=== PATIENT | female | born 1965 | race Caucasian/White ===

== ENCOUNTER 2022-07-13 22:39 | Emergency (ER) | payer OTHER, MEDICAID, SELFPAY ==
[2022-07-13 23:17] VITALS: BP 150/86; PULSE 104; RESP 16; TEMP 36.7; O2SAT 94; BMI 57.4
--- NOTE | 2022-07-13 23:40 | ED.ABDPAIN ---
HPI - Abdominal Pain General Chief Complaint: Abdominal Pain Stated Complaint: Cold and ABD pain x week Time Seen by Provider: 07/13/22 22:54 Source: patient Mode of arrival: Family Vehicle History of Present Illness HPI narrative: 56-year-old female nonsmoker with a history of asthma presents with family in the chief complaint of nasal congestion cough productive of yellowish sputum and pleuritic-type chest pain over the course of the week. She is had subjective fever and body aches and states that with all of the coughing she has exacerbated the pain in a known large ventral hernia. She is had no nausea or vomiting, she is having normal bowel movements and is still passing gas without difficulty. She denies dysuria, frequency urgency. She denies any significant shortness of breath, recent travel, history of blood clot, known cancer or pain, swelling or redness of either of her lower extremities. Related Data Previous Rx's Medication Instructions Recorded benzonatate 200 mg capsule 200 mg PO BID PRN cough #20 caps 07/14/22 doxycycline hyclate 100 mg tablet 100 mg PO BID #20 tabs 07/14/22 Allergies Allergy/AdvReac Type Severity Reaction Status Date / Time amoxicillin [From Augmentin] Allergy Unknown Verified 07/13/22 23:57 clavulanic acid Allergy Unknown Verified 07/13/22 23:57 [From Augmentin] codeine Allergy Unknown Verified 07/13/22 23:56 ibuprofen Allergy Unknown Verified 07/13/22 23:57 Review of Systems Review of Systems Narrative: GENERAL: Denies chills, fatigue, malaise, fever, sweats. HEENT: See HPI RESPIRATORY: See HPI CARDIOVASCULAR: Denies chest pain, palpitations, orthopnea, edema, GASTROINTESTINAL: See HPI : Denies dysuria, frequency, incontinence, hematuria, urinary retention. MUSCULOSKELETAL: denies weakness, joint pain, or bony pain SKIN: Denies rash, skin lesions, or other NEUROLOGIC: Denies weakness, headache, numbness, change in speech, confusion, seizures, incoordination. PSYCHIATRIC: No concerning psychosocial issues. 12 point review of systems is negative except for those stated above Exam Narrative Exam Narrative: GENERAL: [56] year old patient appears stated age. Well-developed patient, in mild distress. HEAD: Atraumatic. Normocephalic. EYES: Pupils equal round and reactive. Extraocular motions intact. No scleral icterus. No injection or drainage. ENT: Nose without bleeding, purulent drainage. Throat without erythema, tonsillar hypertrophy or exudate. Airway patent. NECK: Trachea midline. Non tender CARDIOVASCULAR: Regular rate and rhythm without murmurs, gallops, or rubs. RESPIRATORY: Clear to auscultation. Breath sounds equal bilaterally. No wheezes, rales, or rhonchi. GASTROINTESTINAL: Abdomen soft, large ventral hernia, minimally tender, no overlying erythema EXTREMITIES: No edema or joint tenderness. BACK: Nontender without deformity or crepitance. No flank tenderness. NEURO: AOx3. SKIN: No rash or erythema of visible areas Initial Vital Signs Initial Vital Signs: Vital Signs Temperature 98.1 F 07/13/22 23:17 Pulse Rate 104 H 07/13/22 23:17 Respiratory Rate 16 07/13/22 23:17 Blood Pressure 150/86 H 07/13/22 23:17 Pulse Oximetry 94 07/13/22 23:17 Oxygen Delivery Method Room Air 07/13/22 23:17 Course Orders Ordered: ED Orders 07/13/22 23:47 XR acute abdomen series Stat 07/13/22 23:55 Complete Blood Count AUTO DIFF Stat Comprehensive Metabolic Panel Stat Lipase Stat 07/14/22 00:10 Respiratory Panel (Film Array) Stat 07/14/22 01:01 CT abdomen pelvis w con Stat CT angio chest PE protocol Stat Discontinued Medications Hydromorphone HCl (Hydromorphone 0.5 Mg Inj) 0.5 mg IV NOW ONE Stop: 07/14/22 01:02 Last Admin: 07/14/22 01:38 Dose: 0.5 mg Documented By: NICOLE Sodium Chloride (Normal Saline 0.9%) 1,000 mls @ 1,000 mls/hr IV BOLUS ONE Stop: 07/14/22 00:46 Last Infusion: 07/14/22 01:29 Dose: 0 mls/hr Documented By: Admin: 07/14/22 00:08 Dose: 1,000 mls/hr Documented By: NICOLE Ondansetron HCl (Ondansetron 4 Mg/2 Ml Inj) 4 mg IV NOW ONE Stop: 07/14/22 01:02 Last Admin: 07/14/22 01:38 Dose: 4 mg Documented By: NICOLE Vital Signs Vital signs: Vital Signs - 8 hr 07/13/22 23:17 07/13/22 23:42 07/14/22 02:38 Temperature 98.1 F Pulse Rate 104 H 94 H Respiratory Rate 16 16 Blood Pressure 150/86 H 100/72 131/67 Pulse Oximetry 94 96 Oxygen Delivery Method Room Air Nasal Cannula Oxygen Flow Rate 2 MDM - Abdominal Pain Lab Data 07/13/22 23:55 07/13/22 23:55 Labs: Lab Results 07/13/22 07/13/22 07/14/22 Range/Units 23:55 23:55 00:10 WBC 10.3 (4.5-11.0) X10^3/uL RBC 4.92 (4.0-5.2) X10^6/uL Hgb 12.1 (12.0-16.0) g/dL Hct 38.9 (36-46) % MCV 79.1 L (80-100) fL MCH 24.5 L (26-34) PG MCHC 31.0 (30-36) % RDW 19.1 H (11.6-14.8) % Plt Count 396 (150-400) X10^3/uL Neut % (Auto) 75.5 H (50-75) % Lymph % (Auto) 15.5 L (25-40) % Riley % (Auto) 7.5 (3-14) % Eos % (Auto) 1.0 L (2-4) % Baso % (Auto) 0.5 (0-2) % Neut # (Auto) 7800 H (4720-1583) /uL Lymph # (Auto) 1600 (6195-4750) /uL Riley # (Auto) 800 (0-900) /uL Eos # (Auto) 100 (0-450) /uL Baso # (Auto) 0 (0-100) /uL Sodium 135 L (137-145) mmol/L Potassium 4.1 (3.4-5.1) mmol/L Chloride 95 L (98-107) mmol/L Carbon Dioxide 35 H (22-32) mmol/L BUN 14 (7-17) mg/dL Creatinine 0.62 (0.52-1.04) mg/dL Estimated GFR > 60 (>60) mL/min BUN/Creatinine Ratio 22.6 H (6-22) Glucose 231 H (70-100) mg/dL Calcium 8.7 (8.4-10.2) mg/dL Total Bilirubin 0.4 (0.2-1.3) mg/dL AST 20 (14-36) IU/L ALT 21 (<35) IU/L Alkaline Phosphatase 88 (38-126) U/L Total Protein 7.7 (6.3-8.2) g/dL Albumin 3.9 (3.5-5.0) g/dL Globulin 3.8 (1.7-4.1) g/dL Albumin/Globulin Ratio 1.0 (1.0-2.8) Lipase 104 (23-300) U/L Chlamy pneumoniae PCR Not detected (Not Detect) Adenovirus (PCR) Not detected (Not Detect) B. pertussis DNA (PCR) Not detected (Not Detecte) B.parapertussis DNA PCR Not detected (Not Detecte) Coronavirus OC43 (PCR) Not detected (Not Detect) Coronavirus HKU1 (PCR) Not detected (Not Detect) Coronavirus 229E (PCR) Not detected (Not Detect) SARS-CoV-2 (PCR) Not detected (Not Detecte) Coronavirus NL63 (PCR) Not detected (Not Detect) Human Metapneumovir PCR Not detected (Not Detect) Influenza Type A (PCR) Not detected (Not Detect) Influenza Type B (PCR) Not detected (Not Detect) M. pneumoniae (PCR) Not detected (Not Detect) Parainfluenza 1 (PCR) Not detected (Not Detect) Parainfluenza 2 (PCR) Not detected (Not Detect) Parainfluenza 3 (PCR) Not detected (Not Detect) Parainfluenza 4 (PCR) Not detected (Not Detect) RSV (PCR) Not detected (Not Detect) Entero/Rhino (PCR) Not detected (Not Detect) MDM Narrative Medical decision making narrative: [56] year old patient presents with upper respiratory complaints, and associated pain in abdomen Multiple etiologies for patient's symptoms considered including, but not limited to: [flu, COVID, RSV, Pneumonia, PE vs. other, bowel obstruction ] Prior Charts reviewed in our EMR Primary Historian: patient Labs reviewed and interpreted by myself: No leukocytosis or left shift, no signs of anemia, electrolytes within normal limits. Respiratory panel unremarkable Imaging reviewed: CT angiogram of the chest without significant findings, no pulmonary embolism or focal infiltrate. Abdominal CT does note a large ventral hernia but no signs of obstruction or critical findings Patient's symptoms improved over duration of stay with above-stated therapies. Given 7 days of symptoms with purulent sputum we discussed the utility in treating for the potential of an atypical pneumonia and sure the opinion that it is the most reasonable approach. Antibiotics sent to her pharmacy of choice Findings and discharge diagnosis discussed with patient/family followed by verbalization of understanding Return precautions discussed with patient/family whom verbalize understanding of diagnosis and plan Discharge Plan Departure Patient Disposition: Home Clinical Impression: Atypical pneumonia, Hernia, ventral Instructions: DI for Atypical Pneumonia Activity Restrictions/Additional Instructions: *You have been diagnosed with [atypical pneumonia. As we discussed your history and physical exam are reassuring. Labs and imaging are unremarkable and there is no evidence of a bowel obstruction, surgical complication of your hernia, pneumonia or blood clot.] *What to do: *Please continue to take your regular medications as directed. [x ] New medication prescriptions sent to your pharmacy: [ ] [ ] New medication written as a paper prescription [ ] No new medications given *Please follow up with your primary care provider in 2-3 days, call for an appointment. Let them know you were seen in the Emergency Department and that we ask that you be seen in follow up. We will electronically transmit a record of today's note if your PCP is in our system *If you do not have a primary care provider please contact the [facility] Resource line at [phone]. They will ask some questions about your medical history and help get you set up with a doctor in the community. *Return to Emergency Department if you should have any new, worsening or concerning symptoms, such as [fever greater than 101 F, shaking chills, worsening pain, persistent vomiting or other bothersome symptoms] Prescriptions: New benzonatate 200 mg capsule 200 mg PO BID PRN (Reason: cough) Qty: 20 0RF doxycycline hyclate 100 mg tablet 100 mg PO BID Qty: 20 0RF Referrals: Kathleen Cottrell DO [Primary Care Provider] - Joselin Mays MD [Physician] - Stand Alone Forms: Patient Portal/API
[2022-07-13 23:42] VITALS: BP 100/72
--- NOTE | 2022-07-13 23:47 | DI.RAD.S_ITS ---
PROCEDURE: XR ACUTE ABDOMEN SERIES INDICATIONS: abdominal pain/cough TECHNIQUE: One view chest and two views of the abdomen were acquired. COMPARISON: None. FINDINGS: Surgical changes and devices: None. Chest: There are linear opacities in the lung bases bilaterally likely representing atelectasis. Heart size is normal. No pleural effusions. No pneumoperitoneum. Abdomen: Bowel gas pattern is nonspecific with a paucity of intraluminal gas. No suspicious calcifications. Bones: No suspicious bony lesions. IMPRESSION: 1. Nonspecific bowel gas pattern with a paucity of intraluminal gas. 2. Linear opacities in the lung bases likely represent atelectasis. Dictated by: Ravinder Dillard M.D. on 07/14/2022 at 0:53 Approved by: Ravinder Dillard M.D. on 07/14/2022 at 0:54
[2022-07-14 00:07] LABS: Add Manual Diff / Slide Review NO; Basophils Absolute Auto 0 /uL (0-100); Basophils Percent Auto 0.5 % (0-2); Eosinophils Absolute Auto 100 /uL (0-450); Hematocrit 38.9 % (36-46); Hemoglobin 12.1 g/dL (12.0-16.0); Lymphocytes Absolute Auto 1600 /uL (1100-4500); Lymphocytes Percent Auto 15.5 % (25-40); Mean Corpuscular Hemoglobin 24.5 PG (26-34); Mean Corpuscular Volume 79.1 fL (80-100); Monocytes Absolute Auto 800 /uL (0-900); Monocytes Percent Auto 7.5 % (3-14); Neutrophils Absolute Auto 7800 /uL (1500-7000); Neutrophils Percent Auto 75.5 % (50-75); Platelet Count 396 X10^3/uL (150-400); Red Blood Cell Count 4.92 X10^6/uL (4.0-5.2); Red Cell Distribution Width 19.1 % (11.6-14.8); White Blood Cell Count 10.3 X10^3/uL (4.5-11.0)
[2022-07-14] MEDS: SODIUM CHLORIDE 0.9% 1,000 ML 1000 ML IV (00:08)
[2022-07-14 00:13] LABS: Alanine Aminotransferase 21 IU/L (<35); Albumin 3.9 g/dL (3.5-5.0); Alkaline Phosphatase 88 U/L (38-126); Aspartate Aminotransferase 20 IU/L (14-36); BUN Creatinine Ratio 22.6 (6-22); Bilirubin Total 0.4 mg/dL (0.2-1.3); Blood Urea Nitrogen 14 mg/dL (7-17); Calcium 8.7 mg/dL (8.4-10.2); Carbon Dioxide 35 mmol/L (22-32); Chloride 95 mmol/L (98-107); Estimated Glomerular Filt Rate > 60 mL/min (>60); Globulin 3.8 g/dL (1.7-4.1); Glucose 231 mg/dL (70-100); HEMOLYSIS < 15 (0-50); Lipase 104 U/L (23-300); Potassium 4.1 mmol/L (3.4-5.1); Sodium 135 mmol/L (137-145); Total Protein 7.7 g/dL (6.3-8.2)
--- NOTE | 2022-07-14 01:01 | DI.CT.S_ITS ---
PROCEDURE: CT ANGIO CHEST PE PROTOCOL INDICATIONS: SOB, cough, tachycardia TECHNIQUE: After the administration of intravenous contrast, 2 mm thick sections acquired from the pulmonary apices to the posterior costophrenic angles. 3-dimensional maximum intensity projection (MIP) coronal and sagittal reformats were then acquired through the thorax. For radiation dose reduction, the following was used: automated exposure control, adjustment of mA and/or kV according to patient size. COMPARISON: None. FINDINGS: Image quality: Excellent. Pulmonary arteries: Pulmonary arteries are normal in size, and demonstrate no intraluminal filling defects to suggest central pulmonary embolism. Lower Neck: No lymphadenopathy by size criteria. Thyroid: There is heterogeneous enlargement of the left thyroid lobe with a nodule measuring up to approximately 2.6 cm. Axillae: No lymphadenopathy by size criteria. Chest Wall: Unremarkable. Bones: Visualized osseous structures demonstrate no suspicious lesions. Lungs and Airways: No acute consolidation. There is atelectasis and scarring in the lung bases. A small amount of dependent mucus is demonstrated within the trachea. Pleura: No pneumothorax or pleural effusions. Heart: Heart size is normal. No pericardial effusion. Thoracic Vessels: The thoracic aorta is normal in size. Mediastinum and Josefa: No lymphadenopathy by size criteria. Esophagus: No wall thickening. No hiatal hernia. Abdomen: Visualized upper abdominal solid organs appear normal in the early arterial phase of enhancement. IMPRESSION: 1. No evidence of pulmonary embolism. 2. No acute airspace consolidation. Dictated by: Ravinder Dillard M.D. on 07/14/2022 at 2:14 Approved by: Ravinder Dillard M.D. on 07/14/2022 at 2:30
--- NOTE | 2022-07-14 01:01 | DI.CT.S_ITS ---
PROCEDURE: CT ABDOMEN PELVIS W CON INDICATIONS: severe abdominal pain, large ventral hernia? TECHNIQUE: After the administration of IV contrast, axial sections were acquired from the lung bases to the pubic symphysis. Coronal and sagittal reformats were performed. For radiation dose reduction, the following was used: automated exposure control, adjustment of mA and/or kV according to patient size. COMPARISON: None. FINDINGS: Image quality: Excellent. Lung bases: There is mild scarring and atelectasis in the lung bases. Heart: Heart is normal in size. ABDOMEN: Liver: There is heterogeneous hypoattenuation of the liver consistent with fatty infiltration. Gallbladder: Within normal limits without calcified gallstones. Biliary ducts: No biliary ductal dilatation. Pancreas: Unremarkable. Spleen: Normal in size. Adrenal Glands: No adrenal nodules. Kidneys and Ureters: No hydronephrosis. Stomach and Bowel: Stomach, small bowel loops, and colon are normal in caliber and wall thickness. Peritoneum: No abnormal intraperitoneal fluid. No free air. Ventral Wall: There is a large midline ventral abdominal hernia containing multiple loops of small and large bowel. No evidence of associated bowel obstruction. There is mild associated fat stranding within the mesentery along the herniation site. The hernia defect measures approximately 6.1 cm in transverse dimension by 5.4 cm in craniocaudal dimension. Abdominal Nodes: No retroperitoneal or mesenteric adenopathy by size criteria. Vessels: Aorta and inferior vena cava are normal in size. PELVIS: Pelvic Organs: Unremarkable. Bladder: Unremarkable. Pelvic Nodes: No enlarged lymph nodes. Miscellaneous: No inguinal hernias are seen. Bones: Visualized osseous structures demonstrate no suspicious focal lesions. IMPRESSION: 1. Large ventral abdominal hernia containing loops of small and large bowel without associated obstruction. 2. Mild fat stranding in the mesentery adjacent to the hernia defect is nonspecific and may reflect edema secondary to mass effect. Recommend correlation with clinical exam. Dictated by: Ravinder Dillard M.D. on 07/14/2022 at 2:10 Approved by: Ravinder Dillard M.D. on 07/14/2022 at 2:14
[2022-07-14] MEDS: HYDROMORPHONE 0.5 MG INJ IV (01:38)
[2022-07-14] MEDS: ONDANSETRON 4 MG/2 ML INJ IV (01:38)
[2022-07-14 02:13] LABS: Adenovirus Not Detected (Not Detect)
[2022-07-14 02:16] LABS: B. parapertussis Not Detected (Not Detecte); Bordetella pertussis Not Detected (Not Detecte); Chlamydophila pneumoniae Not Detected (Not Detect); Coronavirus 229E Not Detected (Not Detect); Coronavirus HKU1 Not Detected (Not Detect); Coronavirus NL 63 Not Detected (Not Detect); Coronavirus OC43 Not Detected (Not Detect); Human Metapneumovirus Not Detected (Not Detect); Human Rhinovirus/Enterovirus Not Detected (Not Detect); Influenza A Not Detected (Not Detect); Influenza B Not Detected (Not Detect); Mycoplasma pneumoniae Not Detected (Not Detect); Parainfluenza Virus 1 Not Detected (Not Detect); Parainfluenza Virus 2 Not Detected (Not Detect); Parainfluenza Virus 3 Not Detected (Not Detect); Parainfluenza Virus 4 Not Detected (Not Detect); Respiratory Syncytial Virus Not Detected (Not Detect); SARS- CoV-2 Not Detected (Not Detecte)
[2022-07-14 02:38] VITALS: BP 131/67; PULSE 94; RESP 16; O2SAT 96
== END 2022-07-14 03:12 | disposition home or self-care (01) ==
PROVIDERS: Emergency Provider Emergency Medicine; PCP Student in an Organized Health Care Education/Training Program
DX: J18.9 Pneumonia, unspecified organism (principal); K43.9 Ventral hernia without obstruction or gangrene; R07.9 Chest pain, unspecified; Z20.822 Contact with and (suspected) exposure to COVID-19
CPT/HCPCS: 36415; 71275; 74022; 74177; 80053; 83690; 85025; 87633; 96361; 96374; 96375; 99284; J1170; J2405; Q9967